=== PATIENT | male | born 1965 | race Caucasian/White ===

== ENCOUNTER 2020-06-27 07:30 | Outpatient (CLI) | payer OTHER ==
--- NOTE | 2020-06-27 09:12 | MRI ---
MRI Lower Ext Jt Lt WO Con History: Injury. Pain Comparison: None. Findings: Medial meniscus: Full-thickness radial tear of the root medial meniscus 6 mm from the footp rint with a 4 mm gap. 3 to 4 mm gutter extrusion of the medial meniscal body. Mild intrameniscal degeneration within the posterior horn body junction. Lateral meniscus: Intact Moderate intraligamentous degeneration anterior cruciate ligament. Posterior cruciate ligament is int act. MCL is intact. Mildly thickened proximal fibers LCL. Extensor mechanism: The quadriceps tendon, patella and patellar tendon are intact. Mild medial sublux ation of patella. Mild undersurface partial tearing of the lateral lateral patellar retinaculum superior fibers. Cartilage: Patellofemoral compartment: There is subchondral loss along the medial patellar facet as well as cent ral trochlea. Medial compartment: High grade 75-80% chondral defect central weightbearing surface medial femoral co ndyle measuring 6 mm in transverse with a AP dimension of 7 mm. Lateral compartment: Multifocal 50-75% chondral fissures. Bones: No fracture. No malalignment. No osseous contusion. Small subcortical cysts of the ACL footpri nt. Soft tissues: Moderate joint effusion. Mild prepatellar soft tissue swelling. Minimal delamination of the prepatellar plate. Impression: 1. Full-thickness radial tear posterior medial meniscal root 6 mm from the footprint with a 4 mm medi al gutter extrusion. 2. Partial tear of the lateral patellar retinaculum with subtle medial patellar subluxation. 3. Normal tibial tuberosity-trochlear groove distance. 4. High-grade near full thickness chondral defect central weightbearing surface medial femoral condyl e measuring 6 x 7 mm. 5. 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 6. Low-grade prepatellar plate delamination of the rectus femoris component of the patellar tendon. 7. Moderate joint effusion without free bodies appreciated. 8. Mild intraligamentous degeneration anterior cruciate ligament with tibial footprint insertional cy sts.
== END 2020-06-27 07:31 | disposition home or self-care (01) ==
LOC: SCSMRI 07:30
PROVIDERS: ATTEND Family Medicine
DX: S89.92XA Unspecified injury of left lower leg, initial encounter (principal); S83.241A Other tear of medial meniscus, current injury, right knee, initial encounter; M22.42 Chondromalacia patellae, left knee; M25.462 Effusion, left knee

== ENCOUNTER 2022-11-21 19:00 | Outpatient (CLI) | payer BC | END 2022-11-21 19:01 | disposition home or self-care (01) | LOC: SLEEPLAB 19:00 | PROVIDERS: ATTEND Physician Assistant | DX: G47.33 Obstructive sleep apnea (adult) (pediatric) (principal); K21.9 Gastro-esophageal reflux disease without esophagitis; F32.A Depression, unspecified; E66.9 Obesity, unspecified; R06.83 Snoring; F41.9 Anxiety disorder, unspecified; I10 Essential (primary) hypertension; G47.00 Insomnia, unspecified; G47.61 Periodic limb movement disorder; Z68.41 Body mass index [BMI] 40.0-44.9, adult | CPT/HCPCS: 95811 ==

== ENCOUNTER 2024-07-21 08:10 | Outpatient (CLI) | payer BC ==
[2024-07-21] MEDS ORDERED: Iopamidol 370 76% 100 ML VIAL ONE (12:00)
== END 2024-07-21 08:11 | disposition home or self-care (01) ==
LOC: CT 08:10
PROVIDERS: ATTEND Urology
DX: R31.0 Gross hematuria (principal); Z86.39 Personal history of other endocrine, nutritional and metabolic disease
CPT/HCPCS: 74178; Q9967

== ENCOUNTER 2025-06-02 06:00 | Day surgery (SDC) | payer BC ==
[2025-06-01 10:57] VITALS: BMI 41.1
[2025-06-02] MEDS ORDERED: PROPOFOL 40 ML ONE (07:21)
[2025-06-02] MEDS ORDERED: PHENYLEPHRINE-NS 100 MCG/ML 10 ML SYRINGE ONE (07:50)
[2025-06-02] MEDS ORDERED: PROPOFOL 20 ML ONE (08:04)
== END 2025-06-02 09:28 | disposition home or self-care (01) ==
LOC: SDC 06:00
PROVIDERS: ATTEND Internal Medicine Gastroenterology
DX: K52.9 Noninfective gastroenteritis and colitis, unspecified (principal); I48.91 Unspecified atrial fibrillation; K76.0 Fatty (change of) liver, not elsewhere classified; K21.9 Gastro-esophageal reflux disease without esophagitis; I10 Essential (primary) hypertension; K57.30 Diverticulosis of large intestine without perforation or abscess without bleeding; E78.00 Pure hypercholesterolemia, unspecified; Z79.01 Long term (current) use of anticoagulants; Z79.899 Other long term (current) drug therapy; Z86.0100 Personal history of colon polyps, unspecified
CPT/HCPCS: 88305; J2704